=== PATIENT | male | born 1960 ===

== ENCOUNTER 2020-02-02 09:02 | Day surgery (SDC) | payer OTHER ==
[~2020-02-02 09:02] MED LIST: Lactated Ringers 1,000 ML IV SCH
[2020-02-02] MEDS ORDERED: Propofol 200 MG/20 ML SDV ONE ×3 (09:16→10:12)
[2020-02-02] MEDS ORDERED: Midazolam 1 MG/ML 2 ML SDV ONE (09:16)
[2020-02-02] MEDS ORDERED: fentaNYL 100 MCG/2 ML SDV ONE (09:16)
--- NOTE | 2020-02-02 09:59 | PCM.PREANE ---
Preanesthetic Assessment - Anesthesia/Transfusion/Family Hx Anesthesia History: Prior Anesthesia Without Reaction Family History of Anesthesia Reaction: No Transfusion History: No Prior Transfusion(s) Intubation History: Unknown - Review of Systems General: No Symptoms Pulmonary: No Symptoms Cardiovascular: No Symptoms Gastrointestinal: Other (last colonoscopy 10 years ago) Neurological: No Symptoms Other: Reports: None - Physical Assessment Height: 5 ft 6 in Weight: 91.172 kg ASA Class: 2 Mental Status: Alert & Oriented x3 Airway Class: Mallampati = 2 Dentition: Reports: Normal Dentition Thyro-Mental Finger Breadths: 3 Mouth Opening Finger Breadths: 3 ROM/Head Extension: Full Lungs: Clear to Auscultation, Normal Respiratory Effort Cardiovascular: Regular Rate, Regular Rhythm - Allergies Allergies/Adverse Reactions: Allergies Allergy/AdvReac Type Severity Reaction Status Date / Time acetaminophen [From Esgic] Allergy mood swings Verified 01/27/20 11:51 butalbital [From Esgic] Allergy mood swings Verified 01/27/20 11:51 caffeine [From Esgic] Allergy mood swings Verified 01/27/20 11:51 morphine Allergy Headache Verified 01/27/20 11:51 Penicillins Allergy Cannot Verified 01/27/20 11:51 Remember - Blood Blood Available: No - Anesthesia Plan Pre-Op Medication Ordered: None - Acknowledgements Anesthesia Type Planned: MAC Pt an Appropriate Candidate for the Planned Anesthesia: Yes Alternatives and Risks of Anesthesia Discussed w Pt/Guardian: Yes Pt/Guardian Understands and Agrees with Anesthesia Plan: Yes PreAnesthesia Questionnaire HEENT History: Reports: Other (See Below) Other HEENT History: wears glasses Cardiovascular History: Reports: High Cholesterol Respiratory History: Reports: Sleep Apnea Other Respiratory History: uses CPAP Gastrointestinal History: Reports: Diverticulosis, GERD Genitourinary History: Reports: Renal Calculus Musculoskeletal History: Reports: Arthritis, Back Pain, Chronic, Gout, Other (See Below) (myofascial pain, chronic pain syndrome) Neurological History: Reports: None Psychiatric History: Reports: None Endocrine/Metabolic History: Reports: Diabetes, Type II, Obesity/BMI 30+ (BMI 32.4) Hematologic History: Reports: None Immunologic History: Reports: None Oncologic (Cancer) History: Reports: None Dermatologic History: Reports: None - Past Surgical History Head Surgeries/Procedures: Reports: None HEENT Surgical History: Reports: None Cardiovascular Surgical History: Reports: None Respiratory Surgical History: Reports: None GI Surgical History: Reports: Appendectomy, Cholecystectomy, Colonoscopy (10 years ago - normal) Male Surgical History: Reports: Lithotripsy ([facility]) Endocrine Surgical History: Reports: None Neurological Surgical History: Reports: None Musculoskeletal Surgical History: Reports: None Oncologic Surgical History: Reports: None Dermatological Surgical History: Reports: None - SUBSTANCE USE Tobacco Use Status *Q: Former Tobacco User (quit 7 years ago) Tobacco Use Within Last Twelve Months: No - HOME MEDS Home Medications: Home Meds Hydrocodone/Acetaminophen [Hydrocodone-Acetamin 10-325 mg] 1 tab PO ASDIRECTED PRN 01/27/20 [History] Nortriptyline HCl [Pamelor] 2 tab PO BEDTIME 01/27/20 [History] Pantoprazole Sodium [Protonix] 40 mg PO DAILY 01/27/20 [History] Uloric 40 mg PO DAILY 01/27/20 [History] atorvaSTATin Calcium [Atorvastatin Calcium] 80 mg PO DAILY 01/27/20 [History] metFORMIN HCl [Metformin HCl ER] 2 tab PO DAILY 01/27/20 [History] methocarbamoL [Methocarbamol] 750 mg PO TID 01/27/20 [History] - CURRENT (IN HOUSE) MEDS Current Meds: Current Medications Lactated Ringer's (Ringers, Lactated) 1,000 mls @ 125 mls/hr IV ASDIRECTED NOLVIA Discontinued Medications Fentanyl (Sublimaze) Confirm Administered Dose 100 mcg .ROUTE .STK-MED ONE Stop: 02/02/20 09:17 Lidocaine HCl (Xylocaine-Mpf 1%) Confirm Administered Dose 5 ml .ROUTE .STK-MED ONE Stop: 02/02/20 09:17 Midazolam HCl (Versed 1 Mg/Ml) Confirm Administered Dose 2 mg .ROUTE .STK-MED ONE Stop: 02/02/20 09:17 Propofol (Diprivan 20 Ml) Confirm Administered Dose 200 mg .ROUTE .STK-MED ONE Stop: 02/02/20 09:17 Propofol (Diprivan 20 Ml) Confirm Administered Dose 200 mg .ROUTE .STK-MED ONE Stop: 02/02/20 09:23
--- NOTE | 2020-02-02 10:45 | PCM.OPNOTE ---
- General Post-Op/Procedure Note Date of Surgery/Procedure: 02/02/20 Operative Procedure(s): colonoscopy, biopsy of lesion, dication # [id number] Findings: Diverticulosis. small area of discoloration at 30 cm - removed. Pre Op Diagnosis: colonscopy Post-Op Diagnosis: diverticuolosis, small area of discoloration in sigmoid Anesthesia Technique: Moderate Sedation Primary Surgeon: Papo Saha Pathology: biopsy Complications: None Condition: Good
[2020-02-02 11:02] VITALS: BP 110/65; PULSE 67
--- NOTE | 2020-02-02 11:12 | PCM.POSTAN ---
POST ANESTHESIA ASSESSMENT - MENTAL STATUS Mental Status: Alert, Oriented - VITAL SIGNS Vital Signs: Last Vital Signs Temp 35.9 C L 02/02/20 10:55 Pulse 67 02/02/20 10:55 Resp 14 02/02/20 10:55 BP 110/65 02/02/20 10:55 Pulse Ox 95 02/02/20 10:55 - RESPIRATORY Respiratory Status: Respiratory Rate WNL, Airway Patent, O2 Saturation Stable - CARDIOVASCULAR CV Status: Pulse Rate WNL, Blood Pressure Stable - GASTROINTESTINAL GI Status: No Symptoms - PAIN Pain Score: 0 - POST OP HYDRATION Hydration Status: Adequate & Stable - OBSERVATIONS Free Text/Narrative:: No anesthesia problems
--- NOTE | 2020-02-02 11:35 | PCM48HPAN ---
Post Anesthesia Note - EVALUATION WITHIN 48HRS OF ANESTHETIC Vital Signs in Normal Range: Yes Patient Participated in Evaluation: Yes Respiratory Function Stable: Yes Airway Patent: Yes Cardiovascular Function Stable: Yes Hydration Status Stable: Yes Pain Control Satisfactory: Yes Nausea and Vomiting Control Satisfactory: Yes Mental Status Recovered: Yes Vital Signs: Last Vital Signs Temp 35.9 C L 02/02/20 10:55 Pulse 67 02/02/20 10:55 Resp 14 02/02/20 10:55 BP 110/65 02/02/20 10:55 Pulse Ox 95 02/02/20 10:55 - COMMENTS/OBSERVATIONS Free Text/Narrative:: No anesthesia problems
--- NOTE | 2020-02-02 15:26 | OR ---
SURGEON: CLARK HERNANDES MD DATE OF PROCEDURE: 02/02/2020 PREOPERATIVE DIAGNOSIS: History of diverticulosis. POSTOPERATIVE DIAGNOSES: 1. Diverticulosis. 2. Small discolored area about 30 cm in the sigmoid, which would be a small polyp versus some scrape with a scope trauma versus just irregular fold. ANESTHESIA: General with Anesthesia. PRIMARY SURGEON: Clark Hernandes MD WITHDRAWAL TIME: 14.5 minutes. LIMITATIONS: None. BOWEL PREP: Good. REASON FOR PROCEDURE: The patient is a pleasant 59-year-old gentleman whose last colonoscopy was 10 years ago. He says it was normal except for some diverticulosis. Denies any blood in stool or any family history of colon cancer. PROCEDURE IN DETAIL: Physical examination was performed. The major risks and benefits associated with the procedure were explained to the patient in detail. The patient verbalized understanding of the same. The patient was then connected to appropriate monitoring devices and IV started. EKG, pulse, pulse oximetry, blood pressure, and capnography were monitored throughout the procedure. Continuous oxygen and sedation were provided by the anesthesiologist. The patient was placed in a left lateral decubitus position. Sedation was begun. After adequate sedation was achieved, digital rectal exam was performed. No rectal masses or polyps felt. Now, a well-lubricated Olympus colonoscope was entered in the rectum and advanced under direct visualization to the level of the cecum. Cecum was identified by both visual and anatomic landmarks. Photographs were taken of the cecal cap. The scope was then slowly in somewhat circular fashion looking at the color, texture, anatomy, and integrity of the mucosa from the cecum to the anal canal. The patient had an okay bowel prep, but still had some of liquid stool, but with suction and irrigation, got a very good look at the mucosa. The patient did have some scattered diverticulosis throughout the sigmoid colon. At about 30 cm, there was a little discolored lesion. It looked like potentially a polyp or this could have been caused by some scope trauma with the suctioning some liquid stool out on the way in. It could have been caused by suction or potentially some irregular fold. Anyway, it was removed with cold biopsy polypectomy, appeared to be completely removed with good hemostasis. Scope was retroflexed in the rectum. Scope was completely removed. Procedure terminated. ENDOSCOPIC DIAGNOSIS: A little discolored type lesion, about 30 cm. RECOMMENDATIONS: Followup will depend on pathology. If it is more normal mucosa, 10 years; if it is a polyp, 5 years; sooner if he develops signs or symptoms such as change in bowel habits or blood in his stool. RAJAN PANCHAL /[id number]
== END 2020-02-02 11:20 | disposition home or self-care (01) ==
LOC: MW.SDS 09:02
PROVIDERS: ATTEND Surgery
DX: Z12.11 Encounter for screening for malignant neoplasm of colon (principal); K63.89 Other specified diseases of intestine; K57.30 Diverticulosis of large intestine without perforation or abscess without bleeding; G89.4 Chronic pain syndrome; E78.00 Pure hypercholesterolemia, unspecified; M79.18 Myalgia, other site; E11.9 Type 2 diabetes mellitus without complications; K21.9 Gastro-esophageal reflux disease without esophagitis; Z88.5 Allergy status to narcotic agent; Z88.8 Allergy status to other drugs, medicaments and biological substances; Z88.0 Allergy status to penicillin; Z79.899 Other long term (current) drug therapy; Z79.84 Long term (current) use of oral hypoglycemic drugs; Z90.89 Acquired absence of other organs; Z87.891 Personal history of nicotine dependence
CPT/HCPCS: 45380; J2001; J2250; J2704; J3010; J7120; 00812; 88305